=== PATIENT | male | born 1970 | race Two or more races ===

== ENCOUNTER 2020-12-31 16:11 | Inpatient (IN) | payer BC, OTHER ==
[~2020-12-31] VITALS: Ht 182.9 cm; Wt 99.2 kg
[2020-12-31] MEDS ORDERED: normal saline 1000ML IV soln IVB ONE ×2 (16:40→17:40)
[2020-12-31 17:01] LABS: BASOPHILS # (AUTO) 0.1 X10'3 (0-0.2); BASOPHILS % (AUTO) 0.8 % (0-1); EOSINOPHILS % (AUTO) 0 % (0-6); HEMATOCRIT 54.4 % (42.0-52.0); HEMOGLOBIN 17.9 g/dl (14.0-17.9); LYMPHOCYTES # (AUTO) 1.2 X10'3 (1.1-4.8); LYMPHOCYTES % (AUTO) 9.9 % (21-51); MEAN CORPUSCULAR HEMOGLOBIN 31.4 PG (27.0-31.0); MEAN CORPUSCULAR HGB CONC 32.8 g/dL (33.0-36.5); MEAN CORPUSCULAR VOLUME 95.6 FL (78-98); MEAN PLATELET VOLUME 9.9 FL (7.4-10.4); MONOCYTES # (AUTO) 0.7 X10'3 (0-0.9); MONOCYTES % (AUTO) 5.7 % (2-12); NEUTROPHILS # (AUTO) 10.5 X10'3 (1.8-7.7); NEUTROPHILS % (AUTO) 83.6 % (42-75); PLATELET COUNT 216 X10'3 (140-440); RED BLOOD COUNT 5.69 X10'6 (4.70-6.10); RED CELL DISTRIBUTION WIDTH 12.5 % (11.5-14.5); WHITE BLOOD COUNT 12.5 X10'3 (4.5-11.0)
[2020-12-31 17:15] LABS: ALANINE AMINOTRANSFERASE 76 U/L (12-78); ALBUMIN 3.8 G/DL (3.4-5.0); ALBUMIN/GLOBULIN RATIO 0.9 (1.1-1.5); ALKALINE PHOSPHATASE 111 IU/L (46-116); ANION GAP 18 (8-16); ASPARTATE AMINO TRANSFERASE 24 U/L (10-37); BILIRUBIN,TOTAL 0.7 MG/DL (0.1-1.0); BLOOD UREA NITROGEN 62 MG/DL (7-18); BUN/CREATININE RATIO 23.5 (5.4-32.0); CALCIUM 9.6 MG/DL (8.5-10.1); CHLORIDE 85 MMOL/L (99-107); CREATININE 2.64 MG/DL (0.60-1.10); LIPASE 367 U/L (73-393); SODIUM 121 MMOL/L (135-145); TOTAL CARBON DIOXIDE 18.5 MMOL/L (24-32); TOTAL PROTEIN 7.9 G/DL (6.4-8.2); eGFR 26 ML/MIN
[2020-12-31] MEDS ORDERED: insulin regular, human 10 units/0.1 ml syringe IV ONE ×2 (17:40→20:45)
[2020-12-31 17:50] LABS: GLUCOSE 1238 MG/DL (70-104); POTASSIUM 6.5 MMOL/L (3.5-5.1)
[2020-12-31 18:00] LABS: ABG BASE EXCESS -8.5 mmol/L (-2.0-2.0); ABG HCO3 15.5 mmol/L (22.0-26.0); ABG OXYGEN SATURATION 93.9 % (94-97); ABG PCO2 (T) 29.9 mmHg (35.0-48.0); ABG PO2 (T) 77.1 mmHg (75.0-100.0); ALLEN'S TEST POSITIVE; FCOHb 0.3 % (0.0-3.9); FMetHb 0.4 % (0.0-1.5); FO2Hb 93.2 % (94-97); TOTAL HEMOGLOBIN 18.9 G/dl (14.0-18.0)
[2020-12-31] MEDS: Insulin Reg/NS 100units/100mL 100 ML IV SCH (18:36)
[2020-12-31 18:38] LABS: COLOR,URINE YELLOW (Yellow); GLUCOSE, URINE >=1000 mg/dl (Neg); KETONES,URINE 15 mg/dl (Neg); LEUKOCYTE ESTERASE ,URINE NEGATIVE (Neg); NITRITES, URINE NEGATIVE (Neg); OCCULT BLOOD,URINE LARGE (Neg); PH,URINE 5.5 (4.8-8.0); PROTEIN,URINE 100 mg/dl (Neg); UROBILINOGEN,URINE 0.2 E.U/dL (0.2-1.0)
[2020-12-31 18:39] LABS: CLARITY,URINE Slightly Cloudy (Clear); UA COLLECTION TYPE VOIDED
[2020-12-31 18:48] LABS: AMORPHOUS URATES 1+; BACTERIA,URINE NONE SEEN /HPF (Neg); MUCUS STRANDS FEW /LPF (Neg); SQUAMOUS EPITHELIAL CELL,UR FEW /LPF (FEW); WBC,URINE 0-4 /HPF (0-4)
[2020-12-31] MEDS ORDERED: ondansetron/PF 4mg/2ml inj IV PRN (19:10)
[2020-12-31] MEDS ORDERED: magnesium hydroxide 30ml (MOM) UD suspension PO PRN (19:10)
[2020-12-31] MEDS ORDERED: acetaminophen 325mg tablet PO PRN (19:10)
[2020-12-31] MEDS: normal saline 1000ml 1,000 ML IV SCH ×3 (19:10→22:12)
[2020-12-31] MEDS ORDERED: mag hydrox/Alum hydrox/simeth 30ml oral suspension PO PRN (19:10)
[2020-12-31] MEDS ORDERED: Insulin Reg/NS 100units/100mL 100 ML IV SCH (19:20)
[2020-12-31] MEDS ORDERED: potassium CL 20mEq in D5-1/2NS 1,000 ML IV PRN (19:20)
[2020-12-31 20:25] LABS: ALBUMIN 3.3 G/DL (3.4-5.0); ANION GAP 16 (8-16); BLOOD UREA NITROGEN 62 MG/DL (7-18); BUN/CREATININE RATIO 25.8 (5.4-32.0); CALCIUM 8.7 MG/DL (8.5-10.1); CHLORIDE 96 MMOL/L (99-107); SODIUM 132 MMOL/L (135-145); TOTAL CARBON DIOXIDE 19.8 MMOL/L (24-32); eGFR 29 ML/MIN
[2020-12-31 20:34] LABS: PHOSPHORUS 5.5 MG/DL (2.3-4.5); POTASSIUM 5.8 MMOL/L (3.5-5.1)
[2020-12-31] MEDS: heparin, porcine 5000 units/ml vial SQ SCH (20:49)
[2020-12-31 20:50] LABS: GLUCOSE 932 MG/DL (70-104)
[2020-12-31 20:51] LABS: CLARITY,URINE CLEAR (Clear); COLOR,URINE STRAW (Yellow); GLUCOSE, URINE >=1000 mg/dl (Neg); KETONES,URINE 15 mg/dl (Neg); LEUKOCYTE ESTERASE ,URINE NEGATIVE (Neg); NITRITES, URINE NEGATIVE (Neg); OCCULT BLOOD,URINE LARGE (Neg); PROTEIN,URINE 30 mg/dl (Neg); UROBILINOGEN,URINE 0.2 E.U/dL (0.2-1.0)
[2020-12-31 20:57] LABS: UA COLLECTION TYPE VOIDED
[2020-12-31 20:59] LABS: BACTERIA,URINE NONE SEEN /HPF (Neg); MUCUS STRANDS FEW /LPF (Neg); SQUAMOUS EPITHELIAL CELL,UR FEW /LPF (FEW); WBC,URINE 0-4 /HPF (0-4)
--- NOTE | 2020-12-31 21:09 | NUR ---
Patient in room ED 2. I have received report from Yue KIRAN and had the opportunity to ask questions and assume patient care.
[2020-12-31 22:00] VITALS: BP 127/97
[2020-12-31] MEDS ORDERED: NO HOME MEDS (22:38)
[2020-12-31 22:44] LABS: ALBUMIN 3.4 G/DL (3.4-5.0); ANION GAP 14 (8-16); BLOOD UREA NITROGEN 58 MG/DL (7-18); BUN/CREATININE RATIO 25.6 (5.4-32.0); CALCIUM 9.1 MG/DL (8.5-10.1); CHLORIDE 102 MMOL/L (99-107); CREATININE 2.27 MG/DL (0.60-1.10); POTASSIUM 4.3 MMOL/L (3.5-5.1); SODIUM 138 MMOL/L (135-145); TOTAL CARBON DIOXIDE 21.6 MMOL/L (24-32); eGFR 31 ML/MIN
[2020-12-31 22:47] LABS: GLUCOSE 699 MG/DL (70-104)
[2020-12-31 23:37] LABS: ALBUMIN 3.4 G/DL (3.4-5.0); ANION GAP 11 (8-16); BLOOD UREA NITROGEN 56 MG/DL (7-18); BUN/CREATININE RATIO 27.3 (5.4-32.0); CALCIUM 9.2 MG/DL (8.5-10.1); CHLORIDE 104 MMOL/L (99-107); CREATININE 2.05 MG/DL (0.60-1.10); POTASSIUM 4.5 MMOL/L (3.5-5.1); SODIUM 139 MMOL/L (135-145); TOTAL CARBON DIOXIDE 23.8 MMOL/L (24-32); eGFR 34 ML/MIN
[2020-12-31 23:40] LABS: GLUCOSE 637 MG/DL (70-104)
[2021-01-01] MEDS ORDERED: Insulin Reg/NS 100units/100mL 100 ML IV SCH (00:20)
--- NOTE | 2021-01-01 00:32 | NUR ---
Notified Dr. Kauffman of patients glucose dropping from 637 to 470. Ordered to increase insulin drip from 7units/hr to 8 units/hr.
[2021-01-01] MEDS: normal saline 1000ml 1,000 ML IV SCH ×3 (00:46→10:10)
[2021-01-01 02:00] VITALS: BP 104/77
[2021-01-01] MEDS: Insulin Reg/NS 100units/100mL 100 ML IV SCH (02:48)
[2021-01-01 02:57] LABS: BASOPHILS # (AUTO) 0.1 X10'3 (0-0.2); BASOPHILS % (AUTO) 0.9 % (0-1); EOSINOPHILS % (AUTO) 0.1 % (0-6); HEMATOCRIT 47.9 % (42.0-52.0); HEMOGLOBIN 16.6 g/dl (14.0-17.9); LYMPHOCYTES # (AUTO) 2.5 X10'3 (1.1-4.8); MEAN CORPUSCULAR HGB CONC 34.6 g/dL (33.0-36.5); MEAN CORPUSCULAR VOLUME 89.7 FL (78-98); MEAN PLATELET VOLUME 9.3 FL (7.4-10.4); MONOCYTES # (AUTO) 1.1 X10'3 (0-0.9); MONOCYTES % (AUTO) 8.5 % (2-12); NEUTROPHILS # (AUTO) 8.9 X10'3 (1.8-7.7); NEUTROPHILS % (AUTO) 70.5 % (42-75); PLATELET COUNT 188 X10'3 (140-440); RED BLOOD COUNT 5.33 X10'6 (4.70-6.10); RED CELL DISTRIBUTION WIDTH 12.1 % (11.5-14.5); WHITE BLOOD COUNT 12.7 X10'3 (4.5-11.0)
[2021-01-01 03:08] LABS: ALANINE AMINOTRANSFERASE 70 U/L (12-78); ALBUMIN 3.3 G/DL (3.4-5.0); ALBUMIN/GLOBULIN RATIO 0.9 (1.1-1.5); ALKALINE PHOSPHATASE 90 IU/L (46-116); ANION GAP 10 (8-16); ASPARTATE AMINO TRANSFERASE 31 U/L (10-37); BILIRUBIN,TOTAL 0.5 MG/DL (0.1-1.0); BLOOD UREA NITROGEN 50 MG/DL (7-18); BUN/CREATININE RATIO 25.8 (5.4-32.0); CALCIUM 8.8 MG/DL (8.5-10.1); CHLORIDE 107 MMOL/L (99-107); CREATININE 1.94 MG/DL (0.60-1.10); GLUCOSE 383 MG/DL (70-104); POTASSIUM 4.2 MMOL/L (3.5-5.1); SODIUM 143 MMOL/L (135-145); TOTAL CARBON DIOXIDE 26.4 MMOL/L (24-32); TOTAL PROTEIN 6.8 G/DL (6.4-8.2); eGFR 37 ML/MIN
--- NOTE | 2021-01-01 05:04 | NUR ---
Notified Dr. Kauffman of patient's 0400 blood sugar of 282 and 0500 blood sugar of 293. Insulin drip running at 8 units/hour. Ordered to maintain same rate per MD.
[2021-01-01 06:00] VITALS: BP 142/82
--- NOTE | 2021-01-01 06:00 | NUR ---
Patient in room PCU 3025. I have received report from Rocco KIRAN and had the opportunity to ask questions and assume patient care.
--- NOTE | 2021-01-01 06:03 | NUR ---
Problems reprioritized. Patient report given, questions answered & plan of care reviewed with Star KIRAN.
[2021-01-01] MEDS: heparin, porcine 5000 units/ml vial SQ SCH ×2 (08:08→19:13)
[2021-01-01 09:52] LABS: BASOPHILS # (AUTO) 0.1 X10'3 (0-0.2); BASOPHILS % (AUTO) 0.7 % (0-1); EOSINOPHILS % (AUTO) 0.3 % (0-6); HEMATOCRIT 44.4 % (42.0-52.0); HEMOGLOBIN 15.4 g/dl (14.0-17.9); LYMPHOCYTES # (AUTO) 2.4 X10'3 (1.1-4.8); LYMPHOCYTES % (AUTO) 21.6 % (21-51); MEAN CORPUSCULAR HEMOGLOBIN 31.4 PG (27.0-31.0); MEAN CORPUSCULAR HGB CONC 34.7 g/dL (33.0-36.5); MEAN CORPUSCULAR VOLUME 90.5 FL (78-98); MEAN PLATELET VOLUME 9.2 FL (7.4-10.4); MONOCYTES # (AUTO) 0.9 X10'3 (0-0.9); MONOCYTES % (AUTO) 7.9 % (2-12); NEUTROPHILS # (AUTO) 7.6 X10'3 (1.8-7.7); NEUTROPHILS % (AUTO) 69.5 % (42-75); PLATELET COUNT 161 X10'3 (140-440); RED BLOOD COUNT 4.91 X10'6 (4.70-6.10); RED CELL DISTRIBUTION WIDTH 12.2 % (11.5-14.5)
[2021-01-01 10:16] LABS: ALANINE AMINOTRANSFERASE 63 U/L (12-78); ALKALINE PHOSPHATASE 75 IU/L (46-116); ANION GAP 12 (8-16); ASPARTATE AMINO TRANSFERASE 33 U/L (10-37); BILIRUBIN,TOTAL 0.5 MG/DL (0.1-1.0); BLOOD UREA NITROGEN 42 MG/DL (7-18); BUN/CREATININE RATIO 27.3 (5.4-32.0); CALCIUM 8.4 MG/DL (8.5-10.1); CHLORIDE 110 MMOL/L (99-107); CREATININE 1.54 MG/DL (0.60-1.10); GLUCOSE 185 MG/DL (70-104); PHOSPHORUS 3.8 MG/DL (2.3-4.5); POTASSIUM 3.8 MMOL/L (3.5-5.1); SODIUM 145 MMOL/L (135-145); TOTAL CARBON DIOXIDE 22.9 MMOL/L (24-32); TOTAL PROTEIN 6.1 G/DL (6.4-8.2); eGFR 48 ML/MIN
[2021-01-01 10:55] LABS: CHOL/HDL RATIO 7.9 (0.00-4.99); CHOLESTEROL 212 MG/DL (0-200); HDL CHOLESTEROL 27 MG/DL (35-60); LDL CHOLESTEROL 61 MG/DL (50-100); TRIGLYCERIDES 829 MG/DL (20-135)
--- NOTE | 2021-01-01 10:58 | NUR ---
PAGER ID: [phone] MESSAGE: Re: Evangelista Joel. Room: 302. Pt's Anion Gap is closed and Co2 is above 20. Can I Feed Pt and start hyper/hypoglycemic protocol? -[facility] #[id number] -Dr. Chavarria paged concerning Pt's diet.
[2021-01-01 11:00] VITALS: BP 98/59
[2021-01-01] MEDS ORDERED: dextrose ORAL solution 15 GM/59 ML bottle PO PRN ×2 (11:00)
[2021-01-01] MEDS ORDERED: dextrose 50%-water 50ml dispensing syringe IV PRN ×2 (11:00)
[2021-01-01] MEDS ORDERED: glucagon, human recombinant 1mg kit SUBCUT PRN (11:00)
[2021-01-01] MEDS ORDERED: MESSAGE TO PHARMACY PO ONE (11:00)
[2021-01-01] MEDS ORDERED: METF-950 PO (11:02)
[2021-01-01] MEDS ORDERED: PIOG15TA67 PO (11:02)
[2021-01-01] MEDS ORDERED: LISI10TA27 PO (11:02)
[2021-01-01] MEDS ORDERED: ATOR20TA66 PO (11:02)
[2021-01-01 11:07] LABS: HEMOGLOBIN A1C 10.9 % (4.5-6.2)
[2021-01-01] MEDS: metFORMIN 500mg tablet PO SCH ×2 (12:54→17:42)
[2021-01-01] MEDS: insulin Lispro (HumaLOG) vial - multi-dose SQ SCH ×3 (13:41→21:14)
--- NOTE | 2021-01-01 14:00 | NUR ---
Per DKA protocol; Pt will be given sub q humalog to cover grams of carbs eaten for lunch. insulin drip will then be turned off one hour after sub q administration.
--- NOTE | 2021-01-01 14:30 | NUR ---
Pt's Insulin drip turned off. Will continue to monitor Pt as needed.
--- NOTE | 2021-01-01 14:57 | NUR ---
PAGER ID: [phone] MESSAGE: Re: Tono Joel. Room: [facility]. Insulin drip DC'd. Do you want any fluids running now? -[facility] #[id number] -Dr. Chavarria paged concerning fluid orders.
[2021-01-01 15:00] VITALS: BP 121/76
--- NOTE | 2021-01-01 16:33 | NUR ---
DM/malnutrition consults: Pt admit for hyperosmolar hyperglycemic state. BG 1238 mg/dL on admit with A1c 10.9%. Pt newly diagnosed with T2DM this admit, started on Actos and Metformin and on glycemic protocol. Noted pt with elevated TG 829 mg/dL and CHOL 212 mg/dL with slightly low HDL 27 mg/dL, started on Lipitor this admit. Pt seen at bedside provided with written and verbal high triglyceride nutrition therapy and DM nutrition therapy educations. Pt reports some baseline knowledge about DM management d/t having friends with DM. RD discussed foods that contain carbs, meal frequency, the nutrition facts label, carb intake in moderation, beverage and water intake, managing a low BG, managing DM on sick days, HbA1c conversion chart, monitoring fat intake, and the role of exercise. Pt verbalized understanding and agreed to reach out for questions. Pt states UBW 230 lbs, current scaled wt is 218 lbs. Pt reports wt loss occurred in roughly ten days. Likely that pt experienced wt loss r/t admitting dx. Pt states he was eating well [employer] though was noticeably eating out more and drinking higher amounts of sugary beverages (soda, milk, juice). Pt endorses a good appetite which is evident with documented 100% PO intake at first meal. Pt reports he's full from meals and declines additional protein at this time. Pt reports increased sedentary lifestyle as of recently. Pt with no visible fat or muscle wasting. No documented decrease in muscle strength or edema. Pt currently lacks a minimum of two criteria for malnutrition. Pt provided with RD contact information. Will remain available. Recommendations: 1) Continue CHO controlled diet; consider addition of low fat diet in view of elevated TG and CHOL 2) Bowel care per rx 3) Weekly scaled weights Addendum: 01/01/21 at [address] Amended: Links added.
[2021-01-01 18:00] VITALS: BP 135/80
--- NOTE | 2021-01-01 18:05 | NUR ---
Problems reprioritized. Patient report given, questions answered & plan of care reviewed with Cindy KIRAN and Jory KIRAN.
[2021-01-01 18:15] LABS: ANION GAP 13 (8-16); BLOOD UREA NITROGEN 35 MG/DL (7-18); CHLORIDE 103 MMOL/L (99-107); CREATININE 1.59 MG/DL (0.60-1.10); GLUCOSE 293 MG/DL (70-104); PHOSPHORUS 3.1 MG/DL (2.3-4.5); SODIUM 138 MMOL/L (135-145); TOTAL CARBON DIOXIDE 21.9 MMOL/L (24-32); eGFR 46 ML/MIN
[2021-01-01 18:18] LABS: POTASSIUM 4.4 MMOL/L (3.5-5.1)
--- NOTE | 2021-01-01 18:28 | NUR ---
Patient in room PCU 3025. I have received report from QIANA Graves and had the opportunity to ask questions and assume patient care.
[2021-01-01] MEDS ORDERED: insulin glargine (Lantus) pen - multi-dose SQ SCH (21:00)
[2021-01-01 22:00] VITALS: BP 119/57
[2021-01-02 02:00] VITALS: BP 120/73
--- NOTE | 2021-01-02 06:15 | NUR ---
Patient in room PCU 3025. I have received report from Cindy KIRAN and Jory KIRAN and had the opportunity to ask questions and assume patient care.
--- NOTE | 2021-01-02 06:15 | NUR ---
Orientee documentation: I have reviewed and agree with all medications administered, interventions, assessments performed and documented by Jory KIRAN .
--- NOTE | 2021-01-02 06:17 | NUR ---
Problems reprioritized. Patient report given, questions answered & plan of care reviewed with QIANA Graves.
[2021-01-02 06:56] LABS: BASOPHILS # (AUTO) 0.1 X10'3 (0-0.2); BASOPHILS % (AUTO) 0.8 % (0-1); EOSINOPHILS # (AUTO) 0.2 X10'3 (0-0.9); EOSINOPHILS % (AUTO) 2.2 % (0-6); HEMATOCRIT 42.4 % (42.0-52.0); HEMOGLOBIN 14.7 g/dl (14.0-17.9); LYMPHOCYTES % (AUTO) 33.2 % (21-51); MEAN CORPUSCULAR HEMOGLOBIN 31.7 PG (27.0-31.0); MEAN CORPUSCULAR HGB CONC 34.7 g/dL (33.0-36.5); MEAN CORPUSCULAR VOLUME 91.5 FL (78-98); MEAN PLATELET VOLUME 9.7 FL (7.4-10.4); MONOCYTES # (AUTO) 0.5 X10'3 (0-0.9); MONOCYTES % (AUTO) 5.7 % (2-12); NEUTROPHILS # (AUTO) 5.2 X10'3 (1.8-7.7); NEUTROPHILS % (AUTO) 58.1 % (42-75); PLATELET COUNT 138 X10'3 (140-440); RED BLOOD COUNT 4.63 X10'6 (4.70-6.10); RED CELL DISTRIBUTION WIDTH 12.4 % (11.5-14.5)
[2021-01-02 07:29] LABS: ALANINE AMINOTRANSFERASE 64 U/L (12-78); ALBUMIN 2.7 G/DL (3.4-5.0); ALBUMIN/GLOBULIN RATIO 0.9 (1.1-1.5); ALKALINE PHOSPHATASE 68 IU/L (46-116); ANION GAP 11 (8-16); BILIRUBIN,TOTAL 0.5 MG/DL (0.1-1.0); BLOOD UREA NITROGEN 29 MG/DL (7-18); BUN/CREATININE RATIO 20.6 (5.4-32.0); CALCIUM 7.8 MG/DL (8.5-10.1); CHLORIDE 104 MMOL/L (99-107); CREATININE 1.41 MG/DL (0.60-1.10); GLUCOSE 350 MG/DL (70-104); SODIUM 138 MMOL/L (135-145); TOTAL CARBON DIOXIDE 23.3 MMOL/L (24-32); TOTAL PROTEIN 5.6 G/DL (6.4-8.2); eGFR 53 ML/MIN
[2021-01-02 07:32] LABS: POTASSIUM 4.4 MMOL/L (3.5-5.1)
[2021-01-02] MEDS: metFORMIN 500mg tablet PO SCH ×2 (07:51→12:08)
[2021-01-02] MEDS: heparin, porcine 5000 units/ml vial SQ SCH (07:56)
[2021-01-02] MEDS ORDERED: pioglitazone 15mg tablet PO SCH (08:00)
[2021-01-02] MEDS ORDERED: atorvastatin 20mg tablet PO SCH (08:00)
[2021-01-02] MEDS ORDERED: lisinopril 10 MG tablet PO SCH (08:00)
[2021-01-02 08:07] VITALS: BP 104/77
[2021-01-02 08:10] LABS: ASPARTATE AMINO TRANSFERASE 40 U/L (10-37)
[2021-01-02] MEDS: insulin Lispro (HumaLOG) vial - multi-dose SQ SCH ×2 (08:32→13:43)
[2021-01-02 12:00] VITALS: BP 123/83
[2021-01-02] MEDS ORDERED: SYRI1DIS90 MC (12:35)
[2021-01-02] MEDS ORDERED: LANTUS SQ (12:35)
--- NOTE | 2021-01-02 14:45 | NUR ---
Pt DC'd home with . Pt alert and oriented and vitals WNL upon DC. Per Dr. Chavarria; Pt is stable for DC. IV's removed, canula's intact. Tele-box removed and returned to tele-tech. DC paperwork printed out and gone over with Pt. Allowed Pt to ask questions concerning DC and then answered them. New prescriptions called into [facility] on [facility]. Pt stated that he will make appt with PCP within a week to have a follow up appt. Educated Pt on taking lantus at bedtime and how to administer insulin subq. Pt injected himself with humalog insulin after lunch. Pt's belongings gathered and sent with Pt. Pt walked down to lobby with and left in private vehicle for home.
== END 2021-01-02 14:45 | disposition home or self-care (01) | DRG 639 ==
LOC: ER 16:13 → ED HOLD 19:10 → PCU 3S 21:45
PROVIDERS: ADMIT Internal Medicine; ATTEND Internal Medicine
DX: E11.00 Type 2 diabetes mellitus with hyperosmolarity without nonketotic hyperglycemic-hyperosmolar coma (NKHHC) (principal); E11.10 Type 2 diabetes mellitus with ketoacidosis without coma; E78.5 Hyperlipidemia, unspecified; I10 Essential (primary) hypertension; Z79.4 Long term (current) use of insulin; Z87.442 Personal history of urinary calculi
CPT/HCPCS: 36415; 36600; 71045; 80048; 80053; 80061; 81001; 82803; 82948; 83036; 83690; 84100; 85018; 85025; 87081; 96361; 96374; 99291; G0378; J1644; J1815; J3480; J7030